=== PATIENT | male | born 1975 | race Caucasian/White ===

== ENCOUNTER 2024-10-07 18:00 | Emergency (ER) | payer MEDICARE, MEDICAID, SELFPAY ==
[2024-10-07 18:04] VITALS: PULSE 100; RESP 17; O2SAT 99
[2024-10-07 18:31] VITALS: BP 134/88; PULSE 76; RESP 14; TEMP 37.2; O2SAT 97
--- NOTE | 2024-10-07 18:45 | XR_ITS ---
Examination: PA chest single view Technique: Upright PA chest single view Exam date and time: October 07, 2024 1906 hrs. Indications: Syncopal episode twice today Findings: No aspiration pneumonia Normal heart size The lungs are clear Impression: No aspiration pneumonia
--- NOTE | 2024-10-07 18:45 | EKG_ITS ---
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
--- NOTE | 2024-10-07 18:45 | XR_ITS ---
Examination: CT brain head without contrast. 2-D sagittal coronal reconstructions Date and time of exam:October 07, 2024 1854 hrs. Indications: Syncopal episode today with nausea vomiting and dizziness CTDI: vol (mGy):48.6 DLP: (mGycm):1023 Technique: Multiple CT axial sections of the brain have been obtained, 5 mm slice thickness. Contrast has not been administered. 2-D sagittal, coronal reconstructions have been obtained Low dose protocols were performed. One or more of the following dose reduction techniques were used; automated exposure control, adjustment of the mA and/or KV according to patient size, use of iterative reconstruction technique. Findings: No significant ventricular enlargement. Intra-axial or extra-axial hemorrhage density is not seen. No mass effect or midline shift Basal cisterns are not remarkable. Fourth ventricle is midline. Cranial vault intact. Impression: Negative for acute hemorrhage, mass effect or midline shift Advise clinical correlation and follow-up accordingly
[2024-10-07 19:32] LABS: Basophils # (Auto) 0.1 Thou/mm3 (0.0-0.2); Basophils % (Auto) 1 % (0-2.5); Eosinophils # (Auto) 0.5 Thou/mm3 (0.0-0.5); Eosinophils % (Auto) 5 % (0-10); Hematocrit 46.6 % (41.0-53.0); Hemoglobin 16.7 g/dL (13.5-16.0); Immature Granulocytes % (Auto) 0 % (0-0); Immature Granulocytes Auto 0.02 Thou/mm3 (0.00-0.00); Lymphocytes # (Auto) 1.6 Thou/mm3 (1.0-4.8); Lymphocytes % (Auto) 17 % (10-50); Mean Corpuscular HGB Conc 35.8 g/dl (31.0-37.0); Mean Corpuscular Hemoglobin 30.6 pg (25.0-35.0); Mean Corpuscular Volume 86 fL (80-100); Monocytes # (Auto) 0.7 Thou/mm3 (0.0-0.8); Monocytes % (Auto) 8 % (0-12); Neutrophils # (Auto) 6.7 Thou/mm3 (1.8-7.7); Neutrophils % (Auto) 70 % (37-80); Nucleated Red Blood Cell % 0 /100 WBC (0); Platelet Count 161 Thou/mm3 (140-440); RDW Standard Deviation 37.2 fL (35.1-43.9); Red Blood Count 5.45 Miln/mm3 (4.50-5.90); White Blood Count 9.6 Thou/mm3 (3.8-10.6)
[2024-10-07 19:44] LABS: Partial Thromboplastin Time 25.4 Seconds (22.0-36.0); Prothrombin Time 11.2 Seconds (9.0-12.2)
[2024-10-07 19:45] LABS: Alanine Aminotransferase 28 U/L (10-49); Albumin, Serum 4.9 gm/dL (3.5-5.0); Alkaline Phosphatase 105 U/L (46-116); Anion Gap 9 (7-16); Aspartate Amino Transferase 29 U/L (0-34); BUN/Creatinine Ratio 23 Ratio (12-20); Bilirubin,Total 0.5 mg/dL (0.3-1.2); Blood Urea Nitrogen 21 mg/dL (9-23); Carbon Dioxide 25.2 mMol/L (20.0-31.0); Chloride 108 mMol/L (98-107); Creatinine (Component) 0.9 mg/dL (0.6-1.3); Globulin 2.5 gm/dL (2.3-3.5); Glucose 94 mg/dL (74-106); Osmolality,Calculated 286 (275-295); Potassium 3.8 mMol/L (3.4-5.1); Sodium 142 mMol/L (136-145); Total Protein 7.4 gm/dL (5.7-8.2); Troponin I < 0.002 ng/mL (0.0-0.045); eGFR > 60 See Note
--- NOTE | 2024-10-07 20:09 | PD.EDSYNC ---
ED Syncope RME/HPI General Chief Complaint: Syncope / Near Syncope Stated Complaint: SYNCOPAL EPISODE Time Seen by Provider: 10/07/24 18:33 Source: patient and EMS Arrival date/time: 10/07/24 18:00 This is a 49-year-old male who presented to the emergency department via EMS for complaints of possible syncopal episode. Patient reports he was at home when he is was trying to get up from bed when he felt tingly and dizzy ringing in his ear and almost had a passout episode. He does not have any significant past medical history other than panic attacks and possible IBS. Reports recently feeling fatigued. No fever, cough, shortness of breath, chest pain, chills, abdominal pain, diarrhea, dysuria, hematuria, hematochezia, melena fall, blunt trauma, loss of consciousness, incontinence Mode of arrival: EMS Related Data Home Medications ?Medication ?Instructions ?Recorded ?Confirmed temazepam 15 mg capsule (Restoril) 15 mg 12/24/19 Allergies Allergy/AdvReac Type Severity Reaction Status Date / Time pertussis vaccine,fluid Allergy Severe Cramping Verified 10/07/24 18:52 of the Muscles promethazine Allergy Severe MUSCLE Verified 10/07/24 18:52 CRAMPS quetiapine (From Seroquel) Allergy Severe Cramping Verified 10/07/24 18:52 of the Muscles Review of Systems Review of Systems Systems Reviewed: All systems reviewed, normal except as documented Narrative Review of Systems: Gen: No fever, no chills, no weight loss, + dizziness EYES: No discharge, no visual changes, no pain HEENT: No ear pain, no congestion, no sore throat PULM: No shortness of breath, no cough, no congestion CV: No chest pain, no dyspnea on exertion, no palpitations GI: No nausea, no vomiting, no diarrhea, no pain, no constipation : No frequency, no urgency,? no dysuria Musc/skel: No joint pain, no back pain Skin: No rash? ED Exam Narrative Physical exam: General: Sittiing in Exam table in no acute distress, answering questions appropriately HENT: normocephalic, atraumatic, EOMI, PERRLA, moist mucous membranes Chest: chest wall is nontender Cardiac: regular rate and rhythm, normal S1 and S2, no murmurs, rubs, or gallops, capillary refill ?2 seconds Pulmonary: clear to auscultation bilaterally, no wheezing, crackles, or rhonchi Abdominal: active bowel sounds, soft, nontender, nondistended Neuro: A&OX3, CN II-XII intact, sensation grossly intact bilaterally in UE and LE. 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 Care 10/07/24 18:45 Active EKG (ED ONLY) *Do not use* NOW Care 10/07/24 18:[address] head/brain wo con Stat Exams 10/07/24 18:45 Completed EKG (ED Only) Stat Exams 10/07/24 18:45 Draft XR chest 1V portable Stat Exams 10/07/24 18:45 Completed CBC Stat Lab 10/07/24 19:15 Completed Comprehensive Metabolic Panel Stat Lab 10/07/24 19:15 Completed Drug Screen,Urine Stat Lab 10/07/24 20:41 Completed Partial Thromboplastin Time Stat Lab 10/07/24 19:15 Completed Prothrombin Time with INR Stat Lab 10/07/24 19:15 Completed Troponin I Stat Lab 10/07/24 19:15 Completed Urinalysis Stat Lab 10/07/24 20:41 Completed Meclizine HCl [Antivert] Med 10/07/24 20:09 Discontinued 25 mg PO X1 ONE Sodium Chloride 0.9% 1000 ml [Ns] 1,000 ml Med 10/07/24 20:09 Discontinued IV 999 mls/hr Vital Signs Vital signs: Vital Signs Temperature 98.9 F 10/07/24 18:31 Pulse Rate 76 10/07/24 18:31 Respiratory Rate 14 10/07/24 18:31 Blood Pressure 134/88 H 10/07/24 18:31 Pulse Oximetry (%) 97 10/07/24 18:31 Oxygen Delivery Method Nasal Cannula 10/07/24 18:31 Syncope MDM Narrative MDM Narrative:: Patient awake and alert vital signs stable. Labs reassuring. No acute anemia, no electrolyte imbalance. No transaminitis. Troponin negative. CT head negative for any acute abnormality. EKG medically necessary in the evaluation of dizziness and interpreted by me and ED physician at the time of patient evaluation. Normal sinus rhythm with a rate of 76 IL and QT intervals within normal limits. No ST/T changes. No STEMI. Interpretation: Normal EKG. At this time I feel it is safe the patient be discharged follow-up with his PCP return to the emergency department if any worsening symptoms Patient data External records reviewed:: [facility] previous records Clinical information provided by:: patient Social determinants that could affect healthcare access:: none Patient has the following chronic illnesses:: no How is presenting disease/condition affected by chronic disease/condition?: no chronic disease Evaluation data The following diagnostics were reviewed and interpreted by me:: lab results, radiology exam(s) and EKG tracing(s) Lab and/or radiology exams considered but not ordered:: No Interpretation Summary: Examination: CT brain head without contrast. 2-D sagittal coronal reconstructions Date and time of exam:October 07, 2024 1854 hrs. Indications: Syncopal episode today with nausea vomiting and dizziness CTDI: vol (mGy):48.6 DLP: (mGycm):1023 Technique: Multiple CT axial sections of the brain have been obtained, 5 mm slice thickness. Contrast has not been administered. 2-D sagittal, coronal reconstructions have been obtained Low dose protocols were performed. One or more of the following dose reduction techniques were used; automated exposure control, adjustment of the mA and/or KV according to patient size, use of iterative reconstruction technique. Findings: No significant ventricular enlargement. Intra-axial or extra-axial hemorrhage density is not seen. No mass effect or midline shift Basal cisterns are not remarkable. Fourth ventricle is midline. Cranial vault intact. Impression: Negative for acute hemorrhage, mass effect or midline shift Advise clinical correlation and follow-up accordingly Examination: PA chest single view Technique: Upright PA chest single view Exam date and time: October 07, 2024 1906 hrs. Indications: Syncopal episode twice today Findings: No aspiration pneumonia Normal heart size The lungs are clear Impression: No aspiration pneumonia Medications / Prescriptions Medications or Prescriptions considered but not ordered:: No Medication administrations:: Medication Administration History Discontinued Medications Sodium Chloride (Ns) 1,000 mls @ 999 mls/hr IV .Q1H1M ONE Stop: 10/07/24 21:09 Last Admin: 10/07/24 21:04 Dose: 999 mls/hr Documented By: SHANDA Meclizine HCl (Meclizine Hcl 25 Mg Tablet) 25 mg PO X1 ONE Stop: 10/07/24 20:10 Last Admin: 10/07/24 21:05 Dose: 25 mg Documented By: SHANDA All medications administered and effective Consultations Consultation(s) initiated? (list below): No Diagnosis Syncope Differential Diagnosis: syncope due to orthostatic hypotension, vasovagal syncope, complete atrioventricular block, subarachnoid hemorrhage and dehydration Most likely diagnosis given after review of the tests above:: Vasovagal syncope Admission Indicated Admission indicated?: not indicated Admission Request Was there a request for admission?: No Disposition Plan Disposition Plan: Discharge Discharge Attestation Discharge Attestation: The patient and all family members were given an opportunity to ask questions and understood the discharge instructions. Discharge instructions specifically effects, indications for sooner follow up or return to the emergency department, and the expected course of current diagnosis. Patient condition: Stable Discharge Plan Plan Patient Disposition: HOME (Self Care) Patient condition on transfer: Stable Prescriptions/Referrals Prescriptions/Med Rec: No Action temazepam [Restoril] 15 mg Capsule 15 mg Problem List Clinical Impression: Vasovagal syncope Patient/Caregiver Discharge Instructions Discharge Activity: activity as tolerated Education Materials: Causes of Syncope Additional Instructions: Please follow up with your PCP Return to ER if any worsening symptoms Print Language: Malay Stand Alone Forms: Rubi Award Info., Patient Portal Info Letter BALA/BERRY Supervising Physician BALA/BERRY Supervising Physician: Dr Dobbins
[2024-10-07 20:47] LABS: Collection Type, Urine Clean Catch; Squamous Epithelial Cell,Urine 0 /hpf (0-5)
[2024-10-07 20:58] LABS: Bilirubin,Urine Negative (Negative); Blood,Urine Negative (Negative); Clarity,Urine Clear (Clear/Hazy); Color,Urine Lt-Yellow (Lt Yel-Yel); Glucose, Urine Negative (Negative); Ketones,Urine Negative (Negative); Leukocyte Esterase,Urine Negative (Negative); Nitrite,Urine Negative (Negative); PH,Urine 6.5 (5.0-7.0); Protein,Urine Negative (Neg - Trace); RBC,Urine < 1 /hpf (0-3); Specific Gravity,Urine 1.013 (1.001-1.035); Urobilinogen,Urine Negative mg/dL (0.0-1.0); WBC,Urine 1 /hpf (0-5)
[2024-10-07] MEDS: SODIUM CHLORIDE 0.9% 1000 ML 1,000 ML 999 ML IV (21:04)
[2024-10-07] MEDS: MECLIZINE HCL 25 MG TABLET PO (21:05)
[2024-10-07 21:35] LABS: Amphetamine/Methamp Scrn,U Negative (Negative); Barbiturate Screen,Urine Negative (Negative); Benzodiazepines Screen,Urine Negative (Negative); Benzoylecgonine Screen, Ur Negative (Negative); Fentanyl Screen,Urine Negative (Negative); Opiate Screen,Urine Negative (Negative); THC Screen,Urine Positive (Negative)
[2024-10-07 22:41] VITALS: BP 121/84; PULSE 75; RESP 16; TEMP 36.7; O2SAT 98
== END 2024-10-07 22:41 | disposition home or self-care (01) ==
PROVIDERS: Nurse Practitioner Primary Care; Emergency Provider Emergency Medicine
DX: R55 Syncope and collapse (principal); R42 Dizziness and giddiness
CPT/HCPCS: 36415; 70450; 71045; 80053; 80307; 81001; 84484; 85025; 85610; 85730; 93005; 96360; 99284; J7030; A9270